=== PATIENT | male | born 1975 | race Caucasian/White ===

== ENCOUNTER 2017-09-26 05:32 | Inpatient (IN) | payer MEDICAID ==
[2017-09-26] MEDS ORDERED: Celecoxib 200 MG Cap PO ONE (05:45)
[2017-09-26] MEDS ORDERED: Gabapentin 300 MG Cap PO ONE (05:45)
[2017-09-26] MEDS ORDERED: Scopolamine 1.5 MG Transdermal Patch TRDERM SCH (05:45)
[2017-09-26] MEDS ORDERED: Acetaminophen 500 MG Tab PO ONE (05:45)
[2017-09-26] MEDS ORDERED: Dextrose 5%-Lactated Ringers 1,000 ML IV SCH (06:00)
[2017-09-26] MEDS ORDERED: cefOXitin 2 GM Vial ONE (06:43)
[2017-09-26] MEDS ORDERED: fentaNYL 250 MCG/5 ML SDV ONE ×2 (06:59→08:30)
[2017-09-26] MEDS ORDERED: Rocuronium 50 MG/5 ML Vial ONE ×2 (07:00→08:29)
[2017-09-26] MEDS ORDERED: Dexamethasone 4 MG/ML SDV ONE (07:00)
[2017-09-26] MEDS ORDERED: Ondansetron 4 MG/2 ML SDV ONE (07:00)
[2017-09-26] MEDS ORDERED: Propofol 200 MG/20 ML SDV ONE (07:00)
[2017-09-26] MEDS ORDERED: Glycopyrrolate 0.2 MG/ML 5 ML MDV ONE (07:00)
[2017-09-26] MEDS ORDERED: Succinylcholine 200 MG/10 ML MDV ONE (07:00)
[2017-09-26] MEDS ORDERED: Neostigmine Methylsulfate 1 MG/ML 5 ML Syringe ONE (07:00)
[2017-09-26] MEDS ORDERED: Lactated Ringers 1,000 ML ONE (07:14)
[2017-09-26] MEDS ORDERED: Ketamine 500 MG/5 ML MDV IV SCH (07:30)
[2017-09-26] MEDS ORDERED: Ropivacaine 60 ML, Dexamethasone 8 MG, EPINEPHrine 0.4 MG, Sodium Chloride 0.9% 17.6 ML NERVRT SCH ×4 (07:30)
[2017-09-26] MEDS ORDERED: Lidocaine 2% 100 MG/5 ML Syringe IVPUSH ONE (08:00)
[2017-09-26] MEDS: cefOXitin 2 GM in Sodium Chloride 0.9% 50 ML IV ONE ×2 (08:01→14:13)
[2017-09-26] MEDS ORDERED: hydrOXYzine HCl 100 MG/2 ML SDV IM ONE (09:32)
[2017-09-26] MEDS ORDERED: Insulin Aspart 100 Units/ML 3 ML Pen SUBCUT ONE (09:45)
[2017-09-26] MEDS: Liraglutide (rDNA Origin) 0.6 MG/0.1 ML 3 ML Pen SUBCUT SCH (09:51)
[2017-09-26] MEDS: Lidocaine 0.4%/D5W 2 GM/500 ML BAG IV SCH ×2 (10:42→23:39)
[2017-09-26] MEDS ORDERED: 50% Dextrose in Water 50 ML Syringe IVPUSH PRN (12:00)
[2017-09-26] MEDS ORDERED: diphenhydrAMINE 50 MG/ML SDV IVPUSH PRN (12:00)
[2017-09-26] MEDS ORDERED: Labetalol 20 MG/4 ML Syringe IVPUSH PRN (12:00)
[2017-09-26] MEDS ORDERED: Glucagon,Human Recombinant 1 MG Vial IM PRN (12:00)
[2017-09-26] MEDS ORDERED: Metoclopramide 10 MG/2 ML SDV IVPUSH PRN (12:00)
[2017-09-26] MEDS ORDERED: hydrOXYzine HCl 100 MG/2 ML SDV IM PRN (12:00)
[2017-09-26] MEDS ORDERED: Ondansetron 4 MG/2 ML SDV IVPUSH PRN (12:00)
[2017-09-26] MEDS ORDERED: Pantoprazole 40 MG Vial IVPUSH SCH (12:00)
[2017-09-26] MEDS ORDERED: Benzocaine/Cetylpyridinium/Menthol Lozenge MUCMEM PRN (12:04)
[2017-09-26] MEDS: Acetaminophen Soln 650 MG/20.3 ML UD Cup PO SCH ×3 (12:16→23:46)
[2017-09-26] MEDS: Magnesium Sulfate/Water 2 GM in Premix Bag 1 BAG IV SCH ×3 (12:24→23:46)
[2017-09-26] MEDS: Dextrose 5%-Lactated Ringers 1,000 ML IV SCH ×2 (12:30→22:53)
[2017-09-26] MEDS: cefOXitin 2 GM in Sodium Chloride 0.9% 50 ML IV SCH ×2 (14:30→20:33)
[2017-09-26] MEDS: Potassium Phosphates 20 MMOLE in Sodium Chloride 0.9% 250 ML IV SCH ×3 (14:30→20:37)
[2017-09-26] MEDS: Gabapentin 250 MG/5 ML Solution ML 470 ML Bottle PO SCH ×2 (15:27→20:44)
[2017-09-26] MEDS: MVI, Adult with Vitamin K 10 ML, Thiamine 100 MG, Chromium/Copper/Mang/Selen/Zn 1 ML in... IV SCH ×4 (16:08)
[2017-09-26] MEDS: Heparin Sodium 5,000 Units/ML Vial SUBCUT SCH ×2 (17:01→23:46)
[2017-09-26] MEDS: metFORMIN 500 MG/5 ML PO SCH (17:02)
[2017-09-26] MEDS: Insulin Aspart 100 Units/ML 3 ML Pen SUBCUT PRN ×2 (17:19→22:31)
[2017-09-26] MEDS ORDERED: Insulin Detemir 100 Units/ML 3 ML Pen SUBCUT ONE (21:00)
[2017-09-27] MEDS: cefOXitin 2 GM in Sodium Chloride 0.9% 50 ML IV SCH ×2 (02:11→07:52)
[2017-09-27] MEDS ORDERED: Iohexol 647 MG/ML 50 ML SDV PO STA (03:47)
[2017-09-27] MEDS: Dextrose 5%-Lactated Ringers 1,000 ML IV SCH (05:04)
[2017-09-27] MEDS: Insulin Aspart 100 Units/ML 3 ML Pen SUBCUT PRN ×2 (05:23→10:05)
[2017-09-27] MEDS: Magnesium Sulfate/Water 2 GM in Premix Bag 1 BAG IV SCH ×3 (05:30→17:00)
[2017-09-27] MEDS: Acetaminophen Soln 650 MG/20.3 ML UD Cup PO SCH ×3 (05:30→17:00)
[2017-09-27] MEDS: Celecoxib 200 MG Cap PO SCH (07:48)
[2017-09-27] MEDS: metFORMIN 500 MG/5 ML PO SCH ×2 (07:48→16:58)
[2017-09-27] MEDS: Heparin Sodium 5,000 Units/ML Vial SUBCUT SCH ×2 (07:48→16:58)
[2017-09-27] MEDS ORDERED: Ondansetron 4 MG Tab.DIS PO PRN (08:11)
[2017-09-27] MEDS ORDERED: Insulin Detemir 100 Units/ML 3 ML Pen SUBCUT ONE ×2 (08:30→21:00)
[2017-09-27] MEDS: Liraglutide (rDNA Origin) 0.6 MG/0.1 ML 3 ML Pen SUBCUT SCH (08:55)
[2017-09-27] MEDS: Lactated Ringers 1,000 ML IV SCH (08:57)
[2017-09-27] MEDS ORDERED: VALSARTAN 40 MG PO SCH (09:00)
[2017-09-27] MEDS: SCOPOLAMINE PATCH CHECK TOP SCH (09:01)
[2017-09-27] MEDS: Gabapentin 250 MG/5 ML Solution ML 470 ML Bottle PO SCH ×3 (09:59→20:57)
[2017-09-27] MEDS ORDERED: LEVOCARNITINE TARTRATE 250 MG PO SCH (10:00)
[2017-09-27] MEDS: Aspirin 81 MG Tab.EC PO SCH (10:00)
--- NOTE | 2017-09-27 10:19 | CR ---
No gross evidence for contrast leakage. Probable ileus with air-fluid levels. This is in bowel within the left upper quadrant.
--- NOTE | 2017-09-27 10:56 | PCM.SURGPN ---
- General Info Date of Service: 09/27/17 Date of Surgery/Procedure: 09/26/17 POD#: 1 Post-Op Diagnosis: Laparoscopic Gastric Bypass Farshad-en-y Functional Status: Reports: Pain Controlled, Tolerating Diet, Ambulating, Urinating - Review of Systems General: Reports: No Symptoms HEENT: Reports: Other (belching with intake of fluids; states this is improving since yesterday) Pulmonary: Reports: Other (difficulty taking in deep breaths due to some pain) Cardiovascular: Reports: No Symptoms Gastrointestinal: Reports: Flatus Genitourinary: Reports: No Symptoms Musculoskeletal: Reports: No Symptoms Skin: Reports: No Symptoms Neurological: Reports: No Symptoms Psychiatric: Reports: No Symptoms Systems Review Comment:: Patient reports that he is feeling well today. He is tolerating his diet and pain is controlled. He reports that he does have some mild pain with deep breaths post surgery. - Patient Data Vitals - Most Recent: Last Vital Signs Temp 36.8 C 09/27/17 07:00 Pulse 77 09/27/17 07:00 Resp 20 09/27/17 07:00 BP 133/88 09/27/17 10:00 Pulse Ox 91 L 09/27/17 07:34 Weight - Most Recent: 131.995 kg I&O - Last 24 Hours: Intake & Output 09/26/17 09/27/17 09/27/17 22:59 06:59 14:59 Intake Total 3179 1582 290 Output Total 1690 1490 275 Balance 1489 92 15 Lab Results Last 24 Hrs: Laboratory Results - last 24 hr 09/27/17 Range/Units 05:34 Sodium 138 L (140-148) mmol/L Potassium 4.6 (3.6-5.2) mmol/L Chloride 102 (100-108) mmol/L Carbon Dioxide 27 (21-32) mmol/L Anion Gap 13.6 (5.0-14.0) mmol/L BUN 15 (7-18) mg/dL Creatinine 0.9 (0.8-1.3) mg/dL Est Cr Clr Drug Dosing 126.85 mL/min Estimated GFR (MDRD) > 60 (>60) Glucose 293 H (74-106) mg/dL Calcium 8.3 L (8.5-10.1) mg/dL Phosphorus 2.9 (2.5-4.9) mg/dL Med Orders - Current: Current Medications Acetaminophen (Tylenol) 650 mg PO Q6H [facility] [place] Last Admin: 09/27/17 05:30 Dose: 650 mg Aspirin (Halfprin) 81 mg PO DAILY [facility] [place] Last Admin: 09/27/17 10:00 Dose: 81 mg Benzocaine/Menthol (Cepacol Sore Throat) 1 lozenge MUCMEM ASDIRECTED PRN PRN Reason: Sore Throat Last Admin: 09/26/17 13:35 Dose: 1 amadeo Celecoxib (Celebrex) 200 mg PO DAILY@0800 [facility] [place] Last Admin: 09/27/17 07:48 Dose: 200 mg Cyanocobalamin (Vitamin B12) 1,000 mcg IM ONETIME ONE Stop: 09/28/17 09:01 Dextrose/Water (Dextrose 50% In Water) 50 ml IVPUSH ONETIME PRN PRN Reason: ACCUCHECK LESS THAN 70 Diphenhydramine HCl (Benadryl) 25 - 50 mg IVPUSH Q4H PRN PRN Reason: ITCHING Gabapentin (Neurontin) 300 mg PO TID [facility] [place] Last Admin: 09/27/17 09:59 Dose: 300 mg Glucagon (Glucagen) 1 mg IM ONETIME PRN PRN Reason: ACCUCHECK LESS THAN 70 Heparin Sodium (Porcine) (Heparin Sodium) 5,000 units SUBCUT Q8H [facility] [place] Last Admin: 09/27/17 07:48 Dose: 5,000 units Hydroxyzine HCl (Vistaril) 75 - 100 mg IM Q4H PRN PRN Reason: pain Multivitamins/Minerals 10 ml/Thiamine HCl 100 mg/ Chromium/Copper/Manganese/ Seleni/Zn 1 ml/ Dextrose/Lactated Ringer's 1,012 mls @ 174.826 mls/hr IV DAILY@ 1600 [facility] [place] Last Admin: 09/26/17 16:08 Dose: 174.826 mls/hr Magnesium Sulfate 2 gm/ Premix 50 mls @ 25 mls/hr IV Q6H [facility] [place] Stop: 09/28/17 07:59 Last Admin: 09/27/17 05:30 Dose: 25 mls/hr Lactated Ringer's (Ringers, Lactated) 1,000 mls @ 100 mls/hr IV ASDIRECTED [facility] [place] Last Admin: 09/27/17 08:57 Dose: 100 mls/hr Insulin Aspart (Novolog) 0 unit SUBCUT Q6H PRN; Protocol PRN Reason: PER CORRECTIONAL DOSING Last Admin: 09/27/17 10:05 Dose: 5 units Insulin Detemir (Levemir) 15 unit SUBCUT ONETIME ONE Stop: 09/27/17 21:01 Labetalol HCl (Normodyne) 5 - 15 mg IVPUSH Q1H PRN PRN Reason: SBP over 160 OR DBP over 95 Liraglutide (Victoza) 1.8 mg SUBCUT DAILY [facility] [place] Last Admin: 09/27/17 08:55 Dose: 1.8 units Metformin HCl (Riomet) 500 mg PO BIDMEALS [facility] [place] Last Admin: 09/27/17 07:48 Dose: 500 mg Metoclopramide HCl (Reglan) 10 mg IVPUSH Q6H PRN PRN Reason: NAUSEA NOT CONTROL BY ZOFRAN Miscellaneous Information (Remove Patch) 1 ea TRDERM ONETIME ONE Stop: 09/28/17 10:01 Scopolamine Patch (Check) 1 each TOP DAILY [facility] [place] Stop: 09/28/17 12:01 Last Admin: 09/27/17 09:01 Dose: Not Given Non-Formulary Medication (Levocarnitine Tartrate [L-Carnitine]) 250 mg PO DAILY [facility] [place] Ondansetron HCl (Zofran) 4 mg IVPUSH Q4H PRN PRN Reason: Nausea/Vomiting Ondansetron HCl (Zofran Odt) 4 mg PO Q4H PRN PRN Reason: Nausea/Vomiting Pantoprazole Sodium (Protonix Granules) 40 mg PO Q24H [facility] [place] Scopolamine (Transderm-Scop) 1.5 mg TRDERM Q72H [facility] [place] Stop: 09/28/17 09:00 Last Admin: 09/26/17 06:11 Dose: 1.5 mg Valsartan (Diovan) 40 mg PO BID [facility] [place] Last Admin: 09/27/17 10:00 Dose: 40 mg Discontinued Medications Acetaminophen (Tylenol Extra Strength) 1,000 mg PO ONETIME ONE Stop: 09/26/17 05:46 Last Admin: 09/26/17 06:11 Dose: 1,000 mg Cefoxitin Sodium (Mefoxin) Confirm Administered Dose 2 gm .ROUTE .STK-MED ONE Stop: 04/12/18 06:44 Last Admin: 09/26/17 08:10 Dose: 2 gm Celecoxib (Celebrex) 200 mg PO ONETIME ONE Stop: 09/26/17 05:46 Last Admin: 09/26/17 06:11 Dose: 200 mg Ropivacaine 60 ml/Dexamethasone 8 mg/Epinephrine HCl 0.4 mg/ Sodium Chloride 17.6 ml 0 ml NERVRT ASDIRECTED [facility] [place] Last Admin: 09/26/17 07:40 Dose: 80 syringe Dexamethasone (Dexamethasone) Confirm Administered Dose 4 mg .ROUTE .STK-MED ONE Stop: 09/26/17 07:01 Fentanyl (Sublimaze) Confirm Administered Dose 250 mcg .ROUTE .STK-MED ONE Stop: 09/26/17 07:00 Fentanyl (Sublimaze) Confirm Administered Dose 250 mcg .ROUTE .STK-MED ONE Stop: 09/26/17 08:31 Gabapentin (Neurontin) 300 mg PO ONETIME ONE Stop: 09/26/17 05:46 Last Admin: 09/26/17 06:11 Dose: 300 mg Glycopyrrolate (Robinul) Confirm Administered Dose 1 mg .ROUTE .STK-MED ONE Stop: 09/26/17 07:01 Hydroxyzine HCl (Vistaril) 100 mg IM ONETIME ONE Stop: 09/26/17 09:33 Last Admin: 09/26/17 09:43 Dose: 100 mg Cefoxitin Sodium 2 gm/ Sodium (Chloride) 50 mls @ 100 mls/hr IV ONETIME ONE Stop: 09/26/17 07:59 Last Admin: 09/26/17 14:13 Dose: Not Given Dextrose/Lactated Ringer's (Dextrose 5%-Lactated Ringers) 1,000 mls @ 100 mls/ hr IV ASDIRECTED [facility] [place] Last Admin: 09/26/17 06:49 Dose: 100 mls/hr Lidocaine HCl/Dextrose (Lidocaine 2 Gm/D5w 500 Ml) 2 gm in 500 mls @ 30 mls/hr IV .[id number] [facility] [place] Stop: 09/27/17 00:39 Last Admin: 09/26/17 23:39 Dose: 2 mg/min, 30 mls/hr Ketamine HCl 100 mg/ Sodium (Chloride) 100 mls @ 24 mls/hr IV ASDIRECTED [facility] [place] Insulin Human Regular 100 unit (/ Sodium Chloride) 100 mls @ 0 mls/hr IV TITRATE AISHA; Protocol Lactated Ringer's (Ringers, Lactated) Confirm Administered Dose 1,000 mls @ as directed .ROUTE .STK-MED ONE Stop: 09/26/17 07:15 Dextrose/Lactated Ringer's (Dextrose 5%-Lactated Ringers) 1,000 mls @ 175.004 mls/hr IV ASDIRECTED [facility] Last Admin: 09/27/17 05:04 Dose: 175.004 mls/hr Cefoxitin Sodium 2 gm/ Sodium (Chloride) 50 mls @ 100 mls/hr IV Q6H [facility] Stop: 09/27/17 08:29 Last Admin: 09/27/17 07:52 Dose: 100 mls/hr Potassium Phosphate 20 mmole/ (Sodium Chloride) 256.6667 mls @ 85.556 mls/hr IV Q3H [facility] Stop: 09/26/17 22:59 Last Admin: 09/26/17 20:37 Dose: 85.556 mls/hr Insulin Aspart (Novolog) 5 unit SUBCUT ONETIME ONE Stop: 09/26/17 09:46 Last Admin: 09/26/17 09:49 Dose: 5 units Insulin Detemir (Levemir) 30 unit SUBCUT ONETIME ONE Stop: 09/26/17 21:01 Last Admin: 09/26/17 22:30 Dose: 30 units Insulin Detemir (Levemir) 30 unit SUBCUT ONETIME ONE Stop: 09/27/17 08:31 Last Admin: 09/27/17 08:55 Dose: 30 units Iohexol (Omnipaque-300) 50 ml PO .ASDIRECTED STA Stop: 09/27/17 03:48 Last Admin: 09/27/17 04:14 Dose: 50 ml Ketamine HCl (Ketalar) 40 mg IV ASDIRECTED [facility] Lidocaine HCl (Xylocaine 2%) 150 mg IVPUSH ONETIME ONE Stop: 09/26/17 08:01 Last Admin: 09/26/17 14:13 Dose: Not Given Neostigmine Methylsulfate (Neostigmine) Confirm Administered Dose 5 mg .ROUTE .STK-MED ONE Stop: 09/26/17 07:01 Ondansetron HCl (Zofran) Confirm Administered Dose 4 mg .ROUTE .STK-MED ONE Stop: 09/26/17 07:01 Pantoprazole Sodium (Protonix Iv) 40 mg IVPUSH Q24H [facility] Last Admin: 09/26/17 12:15 Dose: 40 mg Propofol (Diprivan 20 Ml) Confirm Administered Dose 200 mg .ROUTE .STK-MED ONE Stop: 09/26/17 07:01 Rocuronium [place] (Zemuron) Confirm Administered Dose 50 mg .ROUTE .STK-MED ONE Stop: 09/26/17 07:01 Rocuronium [place] (Zemuron) Confirm Administered Dose 50 mg .ROUTE .STK-MED ONE Stop: 09/26/17 08:30 Succinylcholine Chloride (Quelicin) Confirm Administered Dose 200 mg .ROUTE .STK -MED ONE Stop: 09/26/17 07:01 - Exam Wound/Incisions: Other (binder on during exam) General: Alert, Oriented, Cooperative, No Acute Distress HEENT: Pupils Equal, Pupils Reactive Neck: Supple, Trachea Midline Lungs: Clear to Auscultation, Normal Respiratory Effort Cardiovascular: Regular Rate, Regular Rhythm, No Murmurs GI/Abdominal Exam: Normal Bowel Sounds, Soft, Tender (to incision sites) Extremities: Normal Inspection, Non-Tender, No Pedal Edema Skin: Warm, Dry, Intact Neurological: No New Focal Deficit Psy/Mental Status: Alert, Normal Affect, Normal Mood - Problem List & Annotations (1) Status post gastric bypass for obesity SNOMED Code(s): 381967071, 176427626, 981938902, [id number] Code(s): Z98.84 - BARIATRIC SURGERY STATUS Status: Acute Current Visit: Yes - Problem List Review Problem List Initiated/Reviewed/Updated: Yes - My Orders Last 24 Hours: Active Orders 24 hr Category Date Time Status Ambulate [RC] ASDIRECTED Care 09/26/17 10:33 Active Cardiac Monitoring Discontinue [RC] Click to Edit Care 09/27/17 08:11 Active Communication Order [RC] ASDIRECTED Care 09/28/17 04:00 Active Communication Order [RC] Q4H Care 09/26/17 10:33 Active Communication Order [RC] ROUTINE Care 09/26/17 10:33 Active Drain Management [RC] ASDIRECTED Care 09/26/17 10:33 Active Head of Bed Elevation [RC] CONTINUOUS Care 09/26/17 10:33 Active Insert Urinary Catheter [OM.PC] Per Unit Routine Care 09/26/17 10:33 Ordered Intake and Output [RC] ASDIRECTED Care 09/26/17 10:33 Active May Shower [RC] ASDIRECTED Care 09/27/17 08:11 Active Notify Provider Intake and Out [RC] ASDIRECTED Care 09/26/17 10:33 Active Notify Provider [RC] PRN Care 09/26/17 10:33 Active Oxygen Therapy [RC] ASDIRECTED Care 09/26/17 10:33 Active POC Glucose [Blood Glucose Check, Bedside] [RC] Q6HR Care 09/26/17 16:00 Active Pneumonia Education [RC] UPON Care 09/26/17 10:33 Active Pulse Oximetry [RC] ASDIRECTED Care 09/26/17 10:33 Active RT BiPAP/CPAP [RC] ASDIRECTED Care 09/26/17 10:33 Active RT Incentive Spirometry [RC] ASDIRECTED Care 09/26/17 10:33 Active Turn, Cough, Deep Breathe [RC] Q1HWA Care 09/26/17 10:33 Active Up to Chair [RC] TIDMEALS Care 09/26/17 10:33 Active Vital Signs [RC] Q4H Care 09/26/17 10:33 Active Consult to Bariatric Services [CONS] Routine Cons 09/26/17 10:33 Active Consult to Packer Inspector [CONS] Routine Cons 09/26/17 10:33 Active Consult to Pharmacy [CONS] Routine Cons 09/26/17 10:33 Active Respiratory Care Assess and Treatment [CONS] Routine Cons 09/26/17 10:33 Active Bariatric Diet [DIET] Diet 09/27/17 Breakfast Active GLUCOSE POC LAB TO COLLECT [POC] Q6H Lab 09/27/17 16:00 Ordered GLUCOSE POC LAB TO COLLECT [POC] Q6H Lab 09/27/17 22:00 Ordered GLUCOSE POC LAB TO COLLECT [POC] Q6H Lab 09/28/17 04:00 Ordered GLUCOSE POC LAB TO COLLECT [POC] Q6H Lab 09/28/17 10:00 Ordered GLUCOSE POC LAB TO COLLECT [POC] Q6H Lab 09/28/17 16:00 Ordered GLUCOSE POC LAB TO COLLECT [POC] Q6H Lab 09/28/17 22:00 Ordered GLUCOSE POC LAB TO COLLECT [POC] Q6H Lab 09/29/17 04:00 Ordered GLUCOSE POC LAB TO COLLECT [POC] Q6H Lab 09/29/17 10:00 Ordered GLUCOSE POC LAB TO COLLECT [POC] Q6H Lab 09/29/17 16:00 Ordered GLUCOSE POC LAB TO COLLECT [POC] Q6H Lab 09/29/17 22:00 Ordered GLUCOSE POC LAB TO COLLECT [POC] Q6H Lab 09/30/17 04:00 Ordered GLUCOSE POC LAB TO COLLECT [POC] Q6H Lab 09/30/17 10:00 Ordered GLUCOSE POC LAB TO COLLECT [POC] Q6H Lab 09/30/17 16:00 Ordered GLUCOSE POC LAB TO COLLECT [POC] Q6H Lab 09/30/17 22:00 Ordered GLUCOSE POC LAB TO COLLECT [POC] Q6H Lab 10/01/17 04:00 Ordered GLUCOSE POC LAB TO COLLECT [POC] Q6H Lab 10/01/17 10:00 Ordered GLUCOSE POC LAB TO COLLECT [POC] Q6H Lab 10/01/17 16:00 Ordered GLUCOSE POC LAB TO COLLECT [POC] Q6H Lab 10/01/17 22:00 Ordered Acetaminophen [Tylenol] Med 09/26/17 12:00 Active 650 mg PO Q6H Aspirin [Halfprin] Med 09/27/17 09:00 Active 81 mg PO DAILY Benzocaine/Cetylpyrd/Menthol [Cepacol Sore Throat] Med 09/26/17 12:04 Active 1 lozenge MUCMEM ASDIRECTED PRN Celecoxib [CeleBREX] Med 09/27/17 08:00 Active 200 mg PO DAILY@0800 Cyanocobalamin (Vitamin B12) [Vitamin B12] Med 09/28/17 09:00 Once 1,000 mcg IM ONETIME ONE Dextrose 50% in Water Med 09/26/17 12:00 Active 50 ml IVPUSH ONETIME PRN Gabapentin [Neurontin] Med 09/26/17 14:00 Active 300 mg PO TID Glucagon,Human Recombinant [GlucaGen] Med 09/26/17 12:00 Active 1 mg IM ONETIME PRN Heparin Sodium Med 09/26/17 16:00 Active 5,000 units SUBCUT Q8H Insulin Aspart [NovoLOG] Med 09/26/17 12:00 Active 0 unit SUBCUT Q6H PRN Insulin Detemir [Levemir] Med 09/27/17 21:00 Once 15 unit SUBCUT ONETIME ONE Labetalol [Normodyne] Med 09/26/17 12:00 Active 5 - 15 mg IVPUSH Q1H PRN Lactated Ringers [Ringers, Lactated] 1,000 ml Med 09/27/17 08:15 Active IV ASDIRECTED MVI, Adult with Vitamin K [Infuvite Adult] 10 ml Med 09/26/17 16:00 Active Thiamine [Vitamin B-1] 100 mg Chromium/Copper/Wojciech/Selen/Zn [Multitrace-5 Concentrate ] 1 ml Dextrose 5%-Lactated Ringers 1,000 ml IV DAILY@1600 Magnesium Sulfate/Water [Magnesium Sulfate 2 GM in Med 09/26/17 12:00 Active Water 50 ML] 2 gm Premix Bag 1 bag IV Q6H Metoclopramide [Reglan] Med 09/26/17 12:00 Active 10 mg IVPUSH Q6H PRN Non-Formulary Medication [NF Drug] Med 09/26/17 12:00 Active 1 each TOP DAILY Ondansetron [Zofran ODT] Med 09/27/17 08:11 Active 4 mg PO Q4H PRN Ondansetron [Zofran] Med 09/26/17 12:00 Active 4 mg IVPUSH Q4H PRN Pantoprazole [ProTONIX Granules] Med 09/27/17 11:30 Active 40 mg PO Q24H Remove Patch Med 09/28/17 10:00 Once 1 ea TRDERM ONETIME ONE Valsartan [Diovan] Med 09/27/17 09:00 Active 40 mg PO BID diphenhydrAMINE [Benadryl] Med 09/26/17 12:00 Active 25 - 50 mg IVPUSH Q4H PRN hydrOXYzine HCl [Vistaril] Med 09/26/17 12:00 Active 75 - 100 mg IM Q4H PRN levOCARNitine Tartrate [L-Carnitine] Med 09/27/17 10:00 Hold 250 mg PO DAILY metFORMIN [Riomet] Med 09/26/17 17:00 Active 500 mg PO BIDMEALS Abdominal Binder [OM.PC] Routine Oth 09/26/17 10:33 Ordered Oral Care [OM.PC] BID Oth 09/26/17 10:45 Ordered Oral Care [OM.PC] BID Oth 09/27/17 10:45 Ordered PT Screening [OM.PC] Routine Oth 09/26/17 10:33 Active Specialty Bed [OM.PC] Routine Oth 09/26/17 10:33 Ordered Resuscitation Status Routine Resus Stat 09/26/17 10:33 Ordered Medication Orders Acetaminophen (Tylenol) 650 mg PO Q6H [facility] [place] Last Admin: 09/27/17 05:30 Dose: 650 mg Admin: 09/26/17 23:46 Dose: 650 mg Admin: 09/26/17 17:27 Dose: 650 mg Admin: 09/26/17 12:16 Dose: 650 mg Aspirin (Halfprin) 81 mg PO DAILY [facility] [place] Last Admin: 09/27/17 10:00 Dose: 81 mg Benzocaine/Menthol (Cepacol Sore Throat) 1 lozenge MUCMEM ASDIRECTED PRN PRN Reason: Sore Throat Last Admin: 09/26/17 13:35 Dose: 1 amadeo Celecoxib (Celebrex) 200 mg PO DAILY@0800 [facility] [place] Last Admin: 09/27/17 07:48 Dose: 200 mg Cyanocobalamin (Vitamin B12) 1,000 mcg IM ONETIME ONE Stop: 09/28/17 09:01 Dextrose/Water (Dextrose 50% In Water) 50 ml IVPUSH ONETIME PRN PRN Reason: ACCUCHECK LESS THAN 70 Diphenhydramine HCl (Benadryl) 25 - 50 mg IVPUSH Q4H PRN PRN Reason: ITCHING Gabapentin (Neurontin) 300 mg PO TID [facility] [place] Last Admin: 09/27/17 09:59 Dose: 300 mg Admin: 09/26/17 20:44 Dose: 300 mg Admin: 09/26/17 15:27 Dose: 300 mg Glucagon (Glucagen) 1 mg IM ONETIME PRN PRN Reason: ACCUCHECK LESS THAN 70 Heparin Sodium (Porcine) (Heparin Sodium) 5,000 units SUBCUT Q8H [facility] [place] Last Admin: 09/27/17 07:48 Dose: 5,000 units Admin: 09/26/17 23:46 Dose: 5,000 units Admin: 09/26/17 17:01 Dose: 5,000 units Hydroxyzine HCl (Vistaril) 75 - 100 mg IM Q4H PRN PRN Reason: pain Multivitamins/Minerals 10 ml/Thiamine HCl 100 mg/ Chromium/Copper/Manganese/ Seleni/Zn 1 ml/ Dextrose/Lactated Ringer's 1,012 mls @ 174.826 mls/hr IV DAILY@ 1600 [facility] [place] Last Admin: 09/26/17 16:08 Dose: 174.826 mls/hr Magnesium Sulfate 2 gm/ Premix 50 mls @ 25 mls/hr IV Q6H [facility] [place] Stop: 09/28/17 07:59 Last Admin: 09/27/17 05:30 Dose: 25 mls/hr Infusion: 09/27/17 01:46 Dose: 25 mls/hr Admin: 09/26/17 23:46 Dose: 25 mls/hr Infusion: 09/26/17 19:13 Dose: 25 mls/hr Admin: 09/26/17 17:13 Dose: 25 mls/hr Infusion: 09/26/17 14:24 Dose: 25 mls/hr Admin: 09/26/17 12:24 Dose: 25 mls/hr Lactated Ringer's (Ringers, Lactated) 1,000 mls @ 100 mls/hr IV ASDIRECTED [facility] [place] Last Admin: 09/27/17 08:57 Dose: 100 mls/hr Insulin Aspart (Novolog) 0 unit SUBCUT Q6H PRN; Protocol PRN Reason: PER CORRECTIONAL DOSING Last Admin: 09/27/17 10:05 Dose: 5 units Admin: 09/27/17 05:23 Dose: 7 units Admin: 09/26/17 22:31 Dose: 9 units Admin: 09/26/17 17:19 Dose: 7 units Insulin Detemir (Levemir) 15 unit SUBCUT ONETIME ONE Stop: 09/27/17 21:01 Labetalol HCl (Normodyne) 5 - 15 mg IVPUSH Q1H PRN PRN Reason: SBP over 160 OR DBP over 95 Liraglutide (Victoza) 1.8 mg SUBCUT DAILY [facility] [place] Last Admin: 09/27/17 08:55 Dose: 1.8 units Admin: 09/26/17 09:51 Dose: 1.8 units Metformin HCl (Riomet) 500 mg PO BIDMEALS [facility] [place] Last Admin: 09/27/17 07:48 Dose: 500 mg Admin: 09/26/17 17:02 Dose: 500 mg Metoclopramide HCl (Reglan) 10 mg IVPUSH Q6H PRN PRN Reason: NAUSEA NOT CONTROL BY ZOFRAN Miscellaneous Information (Remove Patch) 1 ea TRDERM ONETIME ONE Stop: 09/28/17 10:01 Scopolamine Patch (Check) 1 each TOP DAILY [facility] [place] Stop: 09/28/17 12:01 Last Admin: 09/27/17 09:01 Dose: Non-Formulary Medication (Levocarnitine Tartrate [L-Carnitine]) 250 mg PO DAILY [facility] [place] Ondansetron HCl (Zofran) 4 mg IVPUSH Q4H PRN PRN Reason: Nausea/Vomiting Ondansetron HCl (Zofran Odt) 4 mg PO Q4H PRN PRN Reason: Nausea/Vomiting Pantoprazole Sodium (Protonix Granules) 40 mg PO Q24H [facility] [place] Scopolamine (Transderm-Scop) 1.5 mg TRDERM Q72H [facility] [place] Stop: 09/28/17 09:00 Last Admin: 09/26/17 06:11 Dose: 1.5 mg Valsartan (Diovan) 40 mg PO BID [facility] [place] Last Admin: 09/27/17 10:00 Dose: 40 mg - Assessment Assessment (Free Text/Narrative):: S/p laparoscopic gastric bypass farshad-en-y - Plan Plan (Free Text/Narrative):: -Decrease LR to 100 mL/hr -Lantus 30 units this am and 15 units this pm for elevated blood sugars. -Start step II diet, no cereal. -May shower today. -Encouraged IS use every hour while awake due to complaints of mild pain with breathing post surgery.
[2017-09-27] MEDS: traMADol 50 MG Tab PO PRN (11:06)
[2017-09-27] MEDS ORDERED: Pantoprazole 40 MG Delayed-Release Granules 1 Packet PO SCH (11:30)
[2017-09-27] MEDS: MVI, Adult with Vitamin K 10 ML, Thiamine 100 MG, Chromium/Copper/Mang/Selen/Zn 1 ML in... IV SCH ×4 (17:05)
[2017-09-28] MEDS: Acetaminophen Soln 650 MG/20.3 ML UD Cup PO SCH ×2 (00:04→06:12)
[2017-09-28] MEDS: Magnesium Sulfate/Water 2 GM in Premix Bag 1 BAG IV SCH ×2 (00:04→06:12)
[2017-09-28] MEDS: Heparin Sodium 5,000 Units/ML Vial SUBCUT SCH ×2 (00:04→08:31)
[2017-09-28] MEDS: Lactated Ringers 1,000 ML IV SCH (03:15)
[2017-09-28] MEDS: Insulin Aspart 100 Units/ML 3 ML Pen SUBCUT PRN (04:20)
[2017-09-28] MEDS: Celecoxib 200 MG Cap PO SCH (08:31)
[2017-09-28] MEDS: Gabapentin 250 MG/5 ML Solution ML 470 ML Bottle PO SCH (08:31)
[2017-09-28] MEDS: metFORMIN 500 MG/5 ML PO SCH (08:31)
[2017-09-28] MEDS: Aspirin 81 MG Tab.EC PO SCH (08:32)
[2017-09-28] MEDS: Liraglutide (rDNA Origin) 0.6 MG/0.1 ML 3 ML Pen SUBCUT SCH (08:34)
[2017-09-28] MEDS: SCOPOLAMINE PATCH CHECK TOP SCH (08:36)
[2017-09-28] MEDS ORDERED: Cyanocobalamin (Vitamin B12) 1,000 MCG/ML SDV IM ONE (09:00)
[2017-09-28] MEDS: traMADol 50 MG Tab PO PRN (09:42)
--- NOTE | 2017-09-30 17:08 | DISCH ---
FINAL DIAGNOSES: 1. Morbid obesity. 2. Marked hepatomegaly. 3. Paraesophageal diaphragmatic hernia associated with mediastinal lipoma. 4. Peritoneal nodule and small bowel mesentery. OTHER DIAGNOSES: 1. Type 2 diabetes mellitus. 2. History of hypertension. 3. Obstructive sleep apnea. 4. Dysthymic disorder. OPERATIVE PROCEDURES: 1. Done on 09/26/2017, laparoscopic Mell-en-Y gastric bypass along with long limb gastroenterostomy. 2. Chucho-Cut needle liver biopsy. 3. Repair of paraesophageal diaphragmatic hernia along with excision of mediastinal lipoma. 4. Excision of peritoneal nodule. HOSPITAL COURSE: This is a 42-year-old male presenting with longstanding morbid obesity, increasingly significant comorbidities. After preoperative evaluation and discussion, he wished to proceed with a gastric bypass procedure. This was done on the date of admission with the above procedures done concurrently. Postoperatively, he has had no significant problems. The patient preoperatively was on a combination of glargine insulin, metformin XR 1000 mg b.i.d., Victoza 1.8 mg subcutaneous daily, and Invokana 300 mg daily. Presently, he will be sent home only on the metformin 500 mg a day with blood sugars running in the mid 100s. He will be instructed to measure his blood sugars q.i.d. and bring that to the next appointment. We will also have the hospice educator call the patient in 48 hours to see how we are doing with blood sugars and adjust the diabetic management as needed at that point, otherwise, continue usual medications plus tramadol 50 mg q.4 hours p.r.n. and Celebrex 200 mg daily x14 days, along with Tylenol. He [facility].
--- NOTE | 2017-10-01 10:33 | OR ---
DATE OF PROCEDURE: 09/26/2017 PREOPERATIVE DIAGNOSIS: Morbid obesity. POSTOPERATIVE DIAGNOSES: 1. Morbid obesity. 2. Marked hepatomegaly. 3. Paraesophageal diaphragmatic hernia associated with mediastinal lipoma. 4. Peritoneal nodule on the small bowel mesentery. PROCEDURES: 1. Laparoscopic Mell-en-Y gastric bypass with long limb gastroenterostomy (38653). 2. Chucho-Cut needle liver biopsy (69891). 3. Repair of paraesophageal diaphragmatic hernia (31597). 4. Excision of mediastinal lipoma (70307). 5. Excision of peritoneal nodule overlying the small bowel mesentery (94833). ANESTHESIA: General. ASSISTANTS: 1. Audrey Cm PA-C. 2. AGNES Sterling. 3. AGNES Ramirez. INDICATIONS FOR PROCEDURE: This 42-year-old male is presenting with longstanding morbid obesity with increasingly significant comorbidities. After preoperative evaluation and discussion, he wished to proceed with the gastric bypass procedure. Potential risks of the procedure including bleeding, infection, leaks from various GI tract closures, problems with bowel obstruction over time, as well as possibility of cardiopulmonary, septic, or hemorrhagic complications leading to were discussed, and the patient wishes to proceed. DETAILS OF PROCEDURE: The patient was taken to the operating room and placed in a supine position. After general endotracheal anesthesia was induced, he was converted to a lithotomy position, and the abdomen was prepped and draped and an orogastric tube was placed. At 15 cm inferior and 5 cm left of xiphoid process, a transverse incision was made and the peritoneal cavity entered under direct vision with an Optiview trocar inflated to 15 mmHg pressure with CO2. Laparoscope was then reinserted. No underlying trocar insertion site injuries were seen. With direct visualization of the needle tip in the transversus abdominis plane, bilateral transversus abdominis plane blocks were placed using the standard solution. Five additional trocars were then placed across the upper and mid abdomen, and general exploration was undertaken. The patient was noted to have marked hepatomegaly with liver volume being roughly 2 to 3 times normal and liver grossly fatty infiltrated. Chucho-Cut needle biopsy was obtained from left lobe of the liver. Minimal bleeding from the biopsy site was controlled with electrocautery. The omentum was divided in the midline up to the level of the transverse colon. This allowed identification of the small bowel to the ligament of Treitz. The small bowel was then traced out 200 cm distal to that point, was divided transversely with a KENYON stapler. The small bowel was then traced out additional 150 cm, where the [id number] enteroenterostomy was accomplished with an internal firing of Endo-KENYON 60 mm stapler. The common opening was then closed transversely with the same stapler, angles anastomosed, and mesenteric defect approximated with some 0 Ethibond stitch, along with 4 mL of fibrin sealant. The divided end of the Mell limb was then from the mesentery for a few centimeters, which allowed an antecolic position of the Mell limb up to the level of the gastroesophageal junction without tension. During the course of the dissection of the small bowel, a roughly 2 to 3 mm clear serous-type nodule was noted on the small-bowel mesentery. This was excised and sent for histologic evaluation to rule out an occult malignancy. The liver was then retracted anteriorly, and the patient was noted to have a moderate-sized paraesophageal diaphragmatic hernia. This contained perigastric fat, as well as some fundus of the stomach. This was retracted and reduced downward and the peritoneum overlying the hernia incised and reflected downward. The patient was noted to have a mediastinal lipoma located within the hernia. This was dissected free and sent as a separate histologic specimen. The hernia was then repaired anteriorly with a series of 0 Ethibond sutures reinforced with PTFE pledgets. At this point, the gastrointestinal balloon catheter was inflated to 15 mL and pulled up snugly against the EG junction. Gastric wall over the apex of the balloon was then marked with electrocautery, and balloon catheter deflated and pulled up from the esophagus. The lesser omental tissue adjacent to the gastric cardia was incised, and following dissection behind the stomach at the level of the cauterized sabrina of the gastric cardia, the initial firing with formation of the gastric pouch accomplished with a KENYON black load, and one additional firing of the KENYON black load towards the angle of His was then accomplished. Remainder of the aforementioned stomach was accomplished with purple loads. On completion of the pouch, both staple lines were noted to be intact. The anvil of a 25-mm EEA stapler was attached to [place] sump-type tube, and the latter was brought down through the mouth and taken out through a small opening of the gastric pouch. The anvil likewise was pulled down to within the gastric pouch. The divided end of the Mell limb was then opened, and the main body of the EEA stapler passed several centimeters into the lumen of the small bowel, brought up the anvil, and united with it, thus creating the gastrojejunostomy. Upon removal of the stapler, double donuts of mucosa were noted within it. The small bowel was closed off with a vascular staple line. Gastrojejunostomy was then reinforced with some 3-0 Vicryl seromuscular stitch, along with fibrin sealant. Leak test was accomplished with injection of 120 mL of air in the gastric pouch while submerged in cefoxitin-containing saline solution. A single Romulo-Glover drain was then taken out through the left lateral trocar site and placed adjacent to gastric anastomosis and up into the splenic fossa. At that point, trocars were removed and peritoneal cavity deflated. The incision was closed with some 4-0 Vicryl skin stitch. Dressing applied. The patient was taken to the recovery room in satisfactory condition. Physician program services assistant, Audrey Cm, played an essential role in assisting in this case, helping to position the patient, retract structures as needed, as well as suturing and cutting sutures when indicated. Her presence improved patient's safety and decreased the operative time. Swapnil Flanagan MD /[id number]
== END 2017-09-28 11:23 | disposition home or self-care (01) | DRG 620 ==
LOC: JP.SDS 05:32 → JP.SDSSCHI 05:32 → JP.2SS 09:00 → EDSTATUS 09:00
PROVIDERS: ADMIT Surgery; ATTEND Surgery
PROC: 0D164ZA Bypass Stomach to Jejunum, Percutaneous Endoscopic Approach (ICD-10-PCS; principal; 2017-09-26)
PROC: 0FB24ZX Excision of Left Lobe Liver, Percutaneous Endoscopic Approach, Diagnostic (ICD-10-PCS; 2017-09-26)
PROC: 0BQT4ZZ Repair Diaphragm, Percutaneous Endoscopic Approach (ICD-10-PCS; 2017-09-26)
PROC: 0WBC4ZX Excision of Mediastinum, Percutaneous Endoscopic Approach, Diagnostic (ICD-10-PCS; 2017-09-26)
PROC: 3E0T3BZ Introduction of Anesthetic Agent into Peripheral Nerves and Plexi, Percutaneous Approach (ICD-10-PCS; 2017-09-26)
PROC: 0DBV4ZX Excision of Mesentery, Percutaneous Endoscopic Approach, Diagnostic (ICD-10-PCS; 2017-09-26)
DX: E66.01 Morbid (severe) obesity due to excess calories (principal); K44.0 Diaphragmatic hernia with obstruction, without gangrene; Z68.37 Body mass index [BMI] 37.0-37.9, adult; R16.0 Hepatomegaly, not elsewhere classified; D17.4 Benign lipomatous neoplasm of intrathoracic organs; K76.0 Fatty (change of) liver, not elsewhere classified; K66.8 Other specified disorders of peritoneum; E11.9 Type 2 diabetes mellitus without complications; I10 Essential (primary) hypertension; G47.33 Obstructive sleep apnea (adult) (pediatric); E78.5 Hyperlipidemia, unspecified; Z87.891 Personal history of nicotine dependence; Z79.82 Long term (current) use of aspirin; F34.1 Dysthymic disorder; Z79.891 Long term (current) use of opiate analgesic
CPT/HCPCS: 36415; 74240; 74240-26; 80048; 80053; 82962; 83036; 83735; 84100; 85027; 86850; 86900; 86901; 88304; 88305; 88307; 88313; A9270-GY; C9113; J0171; J0330; J0694; J1100; J1644; J2001; J2405; J2704; J2710; J2795; J3010; J3410; J3411; J3420; J3475; J3490; J7030; J7042; J7050; J7120; Q9967